=== PATIENT | female | born 1975 | race Caucasian/White ===

== ENCOUNTER 2017-11-11 20:10 | Emergency (ER) | payer BC ==
--- NOTE | 2017-11-11 20:16 | UC ---
Respiratory Complaint HPI - HPI Summary HPI Summary: 42 year old female presents with complains of cough and sinus congestion. - History of Current Complaint Stated Complaint: COUGH Time Seen by Provider: 11/11/17 20:16 Hx Obtained From: Patient Hx Last Menstrual Period: pt on depo and does not get a menses Onset/Duration: Sudden Onset Severity Initially: Moderate Severity Currently: Moderate Pain Scale Used: 0-10 Numeric - 0 - Allergies/Home Medications Allergies/Adverse Reactions: Allergies Allergy/AdvReac Type Severity Reaction Status Date / Time No Known Allergies Allergy Verified 11/11/17 20:18 PMH/Surg Hx/FS Hx/Imm Hx Previously Healthy: Yes - Surgical History Surgical History: Yes Surgery Procedure, Year, and Place: C section, breast augmentation; LEEP procedure - Family History Known Family History: Positive: None - Social History Alcohol Use: Rare Substance Use Type: None Smoking Status (MU): Never Smoked Tobacco Review of Systems Constitutional: Negative Skin: Negative Eyes: Negative ENT: Sore Throat, Sinus Congestion, Sinus Pain/Tenderness Respiratory: Cough Cardiovascular: Negative Gastrointestinal: Negative Genitourinary: Negative Motor: Negative Neurovascular: Negative Musculoskeletal: Negative Neurological: Negative Psychological: Negative All Other Systems Reviewed And Are Negative: Yes Physical Exam Triage Information Reviewed: Yes Vital Signs Reviewed: Yes Eye Exam: Normal ENT: Positive: Pharyngeal erythema, Nasal congestion, Nasal drainage, Sinus tenderness Dental Exam: Normal Neck exam: Normal Neck: Positive: 1 Respiratory Exam: Normal Cardiovascular Exam: Normal Abdominal Exam: Normal Musculoskeletal Exam: Normal Neurological Exam: Normal Psychological Exam: Normal Skin Exam: Normal Respiratory Course/Dx - Differential Dx/Diagnosis Provider Diagnoses: allergic rhinitis. cough Discharge - Discharge Plan Condition: Stable Disposition: HOME Prescriptions: Amoxicillin PO (*) [Amoxicillin 875 MG (*)] 875 mg PO BID #20 tab Benzonatate CAP* [Tessalon 100 MG CAP*] 100 mg PO TID PRN #30 cap PRN Reason: Cough Guaifenesin-Codeine [Cheratussin AC] 1 teasp PO Q8H PRN #120 ml MDD 15 ml PRN Reason: Cough LoraTADine TAB(NF) [Claritin 10 MG TAB(NF)] 10 mg PO DAILY #30 tab Patient Education Materials: Allergic Rhinitis (ED) Forms: *Work Release Referrals: Bonnie Beltran PA [Primary Care Provider] -
[2017-11-11 20:19] VITALS: BP 121/80
== END 2017-11-11 20:31 | disposition home or self-care (01) ==
LOC: UCCORT 20:10
DX: J30.9 Allergic rhinitis, unspecified (principal)
CPT/HCPCS: 99212; G0463

== ENCOUNTER 2018-07-27 15:43 | Emergency (ER) | payer BC ==
[2018-07-27 16:34] VITALS: BP 114/78
--- NOTE | 2018-07-27 17:03 | UC ---
Throat Pain/Nasal Ben HPI - HPI Summary HPI Summary: 43 YO FEMALE comes in to clinic today with a complaint of 2 weeks of runny nose. The runny nose is gotten worse over the last 2 weeks. She also started with some diarrhea initially. The diarrhea is much more frequent and she is having a hard time controlling the diarrhea now. She is also having nausea and occasional vomiting. Denies any abdominal pain. No fevers. No prior abdominal history of Crohn's or ulcerative colitis. Has not seen any blood in the stool. She reports that IT'S YELLOW. - History of Current Complaint Chief Complaint: UCGeneralIllness Stated Complaint: DIARRHEA,FEVER,SORE THROAT Time Seen by Provider: 07/27/18 16:45 Hx Last Menstrual Period: DEPO Pain Intensity: 0 - Allergies/Home Medications Allergies/Adverse Reactions: Allergies Allergy/AdvReac Type Severity Reaction Status Date / Time No Known Allergies Allergy Verified 11/11/17 20:18 Home Medications: Home Medications Ibuprofen 400 mg PO Q12HR 07/27/18 [History Confirmed 07/27/18] guaiFENesin [Guaifenesin] 400 mg PO DAILY 07/27/18 [History Confirmed 07/27/18] PMH/Surg Hx/FS Hx/Imm Hx Previously Healthy: Yes - Surgical History Surgical History: Yes Surgery Procedure, Year, and Place: C section, breast augmentation; LEEP procedure - Family History Known Family History: Positive: Other - CANCER Negative: Cardiac Disease, Diabetes - Social History Occupation: Employed Full-time Alcohol Use: Rare Substance Use Type: None Smoking Status (MU): Never Smoked Tobacco Review of Systems Constitutional: Negative Skin: Other - Rash in the right armpit over the last 1 week it is itchy Eyes: Negative ENT: Nasal Discharge, Sinus Congestion Respiratory: Negative Cardiovascular: Negative Gastrointestinal: Vomiting, Diarrhea, Nausea Genitourinary: Negative Motor: Negative Neurovascular: Negative Musculoskeletal: Negative Neurological: Negative Psychological: Negative Is Patient Immunocompromised?: No All Other Systems Reviewed And Are Negative: Yes Physical Exam Triage Information Reviewed: Yes Appearance: Well-Appearing Vital Signs: Initial Vital Signs Temp 97.3 F 07/27/18 16:28 Pulse 79 07/27/18 16:28 Resp 16 07/27/18 16:28 BP 114/78 07/27/18 16:28 Pulse Ox 99 07/27/18 16:28 Vital Signs Reviewed: Yes ENT: Positive: Nasal congestion, Nasal drainage, TMs normal Neck: Positive: Supple Respiratory: Positive: Lungs clear, Normal breath sounds, No respiratory distress Cardiovascular: Positive: RRR Abdomen Description: Positive: Nontender, Soft Bowel Sounds: Positive: Present Musculoskeletal Exam: Normal Neurological Exam: Normal Psychological Exam: Normal Skin: Positive: Other - In the right arm. There is a 2 cm diameter scaly ridged rash with central clearing Throat Pain/Nasal Course/Dx - Course Course Of Treatment: We'll treat the ringworm with Chlortrimazole. With the runny nose preceding the diarrhea the plan is to treat with Augmentin. If the sinusitis as the cause of the diarrhea this should help the diarrhea. I discussed with the patient the risks of being on an antibiotic with diarrhea. We will also get a stool sample to further evaluate the cause of the diarrhea. Follow-up with primary doctor. Go to the emergency department if worse. Get rechecked sooner as needed. - Differential Dx/Diagnosis Provider Diagnoses: DIARRHEA. VOMITING. SINUSITIS. RING WORM Discharge - Sign-Out/Discharge Documenting (check all that apply): Patient Departure All imaging exams completed and their final reports reviewed: No Studies - Discharge Plan Condition: Stable Disposition: HOME Prescriptions: Amoxicillin/Clavulanate TAB* [Augmentin TAB 875*] 875 mg PO BID #20 tab Clotrimazole [Antifungal] 1 applic TOPICAL BID #14 gm Ondansetron ODT TAB* [Zofran 4 MG Odt TAB*] 4 mg PO Q6H PRN #10 tab.odt PRN Reason: Nausea Patient Education Materials: Tinea Corporis (ED), Sinusitis (ED), Acute Diarrhea (ED) Forms: *Work Release Referrals: Bonnie Beltran PA [Primary Care Provider] - Additional Instructions: FOLLOW UP WITH YOUR DOCTOR. BRING THE STOOL KIT BACK TO CLINIC. GET RECHECKED FOR ANY WORSENING OF YOUR CONDITION; PAIN, FEVER, BLOOD IN YOUR STOOL, YOU FEEL ILL OR QUESTIONS OR CONCERNS. - Billing Disposition and Condition Condition: STABLE Disposition: Home - Attestation Statements Document Initiated by Raulito: Sharron
== END 2018-07-27 17:18 | disposition home or self-care (01) ==
LOC: UCCORT 15:43
DX: J32.9 Chronic sinusitis, unspecified (principal); R19.7 Diarrhea, unspecified; B35.4 Tinea corporis; R11.10 Vomiting, unspecified
CPT/HCPCS: 82272; 83630; 87045; 87046; 87077; 87328; 87329; 87493; 87899; 99212; G0463

== ENCOUNTER 2019-05-10 08:35 | Emergency (ER) | payer BC ==
[2019-05-10 08:56] VITALS: BP 125/77
--- NOTE | 2019-05-10 09:13 | ED ---
Throat Pain/Nasal Congestion - HPI Summary HPI Summary: 44 yr old with several days of eye irritation. At first her left eye, and now her right. Onset about 6 days ago. Associated with yellow drainage and crusting shut of the eyes. Mild eyelid swelling. No fever or chills. - History of Current Complaint Chief Complaint: UCEye Time Seen by Provider: 05/10/19 09:09 - Allergies/Home Medications Allergies/Adverse Reactions: Allergies Allergy/AdvReac Type Severity Reaction Status Date / Time No Known Allergies Allergy Verified 05/10/19 08:47 PMH/Surg Hx/FS Hx/Imm Hx - Surgical History Surgery Procedure, Year, and Place: C section, breast augmentation; LEEP procedure Infectious Disease History: No Infectious Disease History: Denies: Traveled Outside the [place] in Last 30 Days - Family History Known Family History: Positive: None, Other - CANCER Negative: Cardiac Disease, Diabetes - Social History Occupation: Employed Full-time Alcohol Use: Occasionally Substance Use Type: Reports: None Smoking Status (MU): Never Smoked Tobacco Review of Systems Positive: Drainage, Erythema All Other Systems Reviewed And Are Negative: Yes Physical Exam Triage Information Reviewed: Yes Vital Signs On Initial Exam: Initial Vitals Temp Pulse Resp BP Pulse Ox 97.3 F 70 15 125/77 99 05/10/19 08:49 05/10/19 08:49 05/10/19 08:49 05/10/19 08:49 05/10/19 08:49 Vital Signs Reviewed: Yes Appearance: Positive: Well-Appearing, No Pain Distress Skin: Positive: Warm, Skin Color Reflects Adequate Perfusion Head/Face: Positive: Normal Head/Face Inspection Eyes: Positive: EOMI, FRANCHESCA, Conjunctiva Inflammed, Discharge ENT: Positive: Pharyngeal erythema, TM dull - right, Sinus tenderness Neck: Positive: Nontender Respiratory/Lung Sounds: Positive: Clear to Auscultation, Breath Sounds Present Cardiovascular: Positive: RRR. Negative: Murmur Abdomen Description: Positive: Distended Musculoskeletal: Positive: Strength/ROM Intact Neurological: Positive: Sensory/Motor Intact, Alert, Oriented to Person Place, Time, CN Intact II-III, Speech Normal Psychiatric: Positive: Normal Diagnostics - Vital Signs Vital Signs Temp Pulse Resp BP Pulse Ox 05/10/19 08:49 97.3 F 70 15 125/77 99 - Laboratory Lab Statement: Any lab studies that have been ordered have been reviewed, and results considered in the medical decision making process. EENT Course/Dx - Course Course Of Treatment: 44 yr old with conjunctivitis. Rx erytho eye ointment - Diagnoses Provider Diagnoses: Conjunctivitis, acute, bilateral Discharge - Sign-Out/Discharge Documenting (check all that apply): Patient Departure All imaging exams completed and their final reports reviewed: No Studies - Discharge Plan Condition: Good Disposition: HOME Prescriptions: Erythromycin OPTH OINT* [Erythromycin 0.5% OPTH OINT*] 1 applic BOTH EYES TID # 1 tube Patient Education Materials: Conjunctivitis (ED) Forms: *Work Release Referrals: Bonnie Beltran PA [Primary Care Provider] - 2 Days - Billing Disposition and Condition Condition: GOOD Disposition: Home
== END 2019-05-10 09:18 | disposition home or self-care (01) ==
LOC: UCCORT 08:35
DX: H10.33 Unspecified acute conjunctivitis, bilateral (principal)
CPT/HCPCS: 99212; G0463